=== PATIENT | male | born 1960 | race African-American/Black ===

== ENCOUNTER 2018-02-06 09:26 | Outpatient (CLI) | payer MEDICARE, OTHER ==
[~2018-02-06 09:26] MED LIST: CELE200C PO; CITA10SO5 PO; HYDR-548 PO; LORA1TAB PO; RABE20TA18 PO
[2018-02-06 12:11] LABS: BASOPHILS % (AUTO) 0.4 % (0.0-2.0); EOSINOPHILS % (AUTO) 0.1 % (0.0-6.0); HEMATOCRIT 42 % (39-51); HEMOGLOBIN 14.3 g/dL (13.5-17.5); LYMPHOCYTES % (AUTO) 43.4 % (20.0-44.0); MEAN CORPUSCULAR HGB CONC 34 g/dl (31.0-36.0); MEAN CORPUSCULAR VOLUME 91 fL (80-96); MONOCYTES # (AUTO) 0.5 /CMM (0.1-1.30); MONOCYTES % (AUTO) 11.3 % (2.0-12.0); NEUTROPHILS % (AUTO) 44.8 % (43.0-81.0); PLATELET COUNT (AUTO) 242 /CMM (150-450); RDW COEFFICIENT OF VARIATION 15.9 (11.5-15.0); RED BLOOD CELL COUNT(AUTO) 4.65 MIL/uL (4.5-6.0); WHITE BLOOD COUNT (AUTO) 4.6 K/uL (4.3-11.0)
[2018-02-06 12:27] LABS: ALBUMIN 3.6 g/dL (3.4-5.0); BILIRUBIN,TOTAL 0.3 mg/dL (0.2-1.0); CALCIUM, SERUM 8.8 mg/dL (8.5-10.1); POTASSIUM 3.4 mmol/L (3.5-5.1); TOTAL PROTEIN, SERUM 7.7 g/dL (6.4-8.2)
== END 2018-02-06 23:59 | disposition home or self-care (01) ==
LOC: LAB 09:26
DX: Z11.59 Encounter for screening for other viral diseases (principal); R10.13 Epigastric pain; Z59.0 Homelessness
CPT/HCPCS: 36415; 80053-TC; 80061-TC; 85025-TC; 86803